=== PATIENT | male | born 1950 | race Caucasian/White ===

== ENCOUNTER → 2018-02-23 | Day surgery (SDC) | payer BC ==
[~2018-02-23] MED LIST: Propofol 200 MG/20 ML SDV IV ONE
[2018-02-23] MEDS: Lactated Ringers 1,000 ML IV SCH (07:21)
[2018-02-23 09:59] VITALS: BP 114/69
--- NOTE | 2018-02-26 09:09 | OR ---
DATE OF OPERATION: 02/23/2018 PREOPERATIVE DIAGNOSIS: POSITIVE COLOGUARD. POSTOPERATIVE DIAGNOSIS: POSITIVE COLOGUARD. SURGEON: Misha Butler MD PROCEDURE: FULL-LENGTH COLONOSCOPY WITH POLYP REMOVAL X3, BIOPSY X1. ANESTHESIA: BATH TESTER. COMPLICATIONS: None. SPECIMEN: 1. Three small sessile polyps in cecum, ascending colon, and rectal vault. 2. Focal area of colitis sigmoid colon. FINDINGS: 1. Full length colonoscopy. 2. Minimal sigmoid diverticulosis. 3. Three small sessile polyps. 4. Colitis focal and minimal. RECOMMENDATIONS: Follow up pending path report. INDICATIONS: The patient has in the past refused colonoscopy. He came in for Medicare physical and agreed to a Cologuard, which was positive. He agreed to proceed with diagnostic colonoscopy. DESCRIPTION OF PROCEDURE: The patient was prepped and draped, placed in the left lateral decubitus position. A lubricated Olympus colonoscope was inserted and easily advanced to the cecum. We were able to directly visualize the ileocecal valve and appendiceal orifice. The bowel prep was adequate. Upon withdrawal, the patient right along the cecal rim had a small flat sessile polyp, removed it with three forceps biopsies in its entirety. There was a 2nd small sessile polyp in the ascending colon, also removed with 2 forceps biopsies without complication. The rest of the ascending and transverse colon appeared benign. In the sigmoid area, the patient had no evidence of any polyps, masses, ulcerations, or bleeding sites. There was one small focal area of colitis almost like an AVM in the mid sigmoid area that was removed with a forceps biopsy. No other lesions were found. The rectal vault was benign. Retroflexion showed no perianal lesions. There was one small flat likely hyperplastic lesion, which was removed in its entirety with forceps biopsy x1. Air was then suctioned, scope removed without complication. PERLITA/LEEANNA /[id number]
== END ==
LOC: CC.SDS 07:08
PROVIDERS: ATTEND Family Medicine
DX: R19.5 Other fecal abnormalities (principal); K63.5 Polyp of colon; K62.1 Rectal polyp; K52.9 Noninfective gastroenteritis and colitis, unspecified; M19.90 Unspecified osteoarthritis, unspecified site; E11.9 Type 2 diabetes mellitus without complications; E78.5 Hyperlipidemia, unspecified; Z79.899 Other long term (current) drug therapy
CPT/HCPCS: 82962; J2704; J7120

== ENCOUNTER → 2023-03-31 | Day surgery (SDC) | payer BC ==
[~2023-03-31] MED LIST changes: +Ketamine 200 MG/20 ML MDV ONE; +Lactated Ringers 1,000 ML IV SCH; -Propofol 200 MG/20 ML SDV IV ONE; +Propofol 200 MG/20 ML SDV ONE; +fentaNYL 50 MCG/ML SDV ONE
[2023-03-31 11:07] VITALS: BP 106/64; PULSE 84
== END ==
LOC: CC.SDS 07:32
PROVIDERS: ATTEND Family Medicine
DX: Z12.11 Encounter for screening for malignant neoplasm of colon (principal); K57.30 Diverticulosis of large intestine without perforation or abscess without bleeding; N40.0 Benign prostatic hyperplasia without lower urinary tract symptoms; E78.5 Hyperlipidemia, unspecified; R55 Syncope and collapse; I47.29 Other ventricular tachycardia; E11.9 Type 2 diabetes mellitus without complications; Z86.010 Personal history of colon polyps; Z79.1 Long term (current) use of non-steroidal anti-inflammatories (NSAID); Z79.899 Other long term (current) drug therapy
CPT/HCPCS: 00812; 99100; J2704; J3010; J3490